=== PATIENT | female | born 1940 | race Caucasian/White ===

== ENCOUNTER 2018-10-19 22:36 | Emergency (ER) | payer MEDICARE, OTHER ==
[~2018-10-19] VITALS: Ht 152.4 cm; Wt 83.9 kg
[2018-10-19] MEDS ORDERED: DOXYCYCLINE 10100 MG PO (22:47)
[2018-10-19] MEDS ORDERED: MUCUS ER600 M1 PO (22:48)
[2018-10-19] MEDS ORDERED: SEREVENT DISKU50 MCG INH (22:48)
[2018-10-19] MEDS ORDERED: BUSPIRONE HCL10 MG PO (22:49)
[2018-10-19] MEDS ORDERED: METFORMIN HCL500 MG PO (22:50)
[2018-10-19] MEDS ORDERED: CLARINEX5 MG PO (22:50)
[2018-10-19] MEDS ORDERED: COZAAR 25 MG TA25 M1 PO (22:51)
[2018-10-19] MEDS ORDERED: PROAIR HFA8.5 GM INH (22:51)
[2018-10-19] MEDS ORDERED: CENTRUM SILVER1 EAC4 PO (22:52)
[2018-10-19] MEDS ORDERED: FISH OIL 1,001000 M2 PO (22:52)
[2018-10-19] MEDS ORDERED: VITAMIN D3400 UNIT PO (22:52)
[2018-10-19] MEDS ORDERED: NEXIUM40 MG PO (22:53)
[2018-10-19] MEDS ORDERED: LIPITOR40 MG PO (22:53)
[2018-10-19] MEDS ORDERED: CALCIUM 600 +1 EAC1 PO (22:53)
[2018-10-19] MEDS ORDERED: OCCUVITE PO (22:53)
[2018-10-19] MEDS ORDERED: SINGULAIR 10 MG10 M1 PO (22:54)
[2018-10-19] MEDS ORDERED: NORVASC5 MG PO (22:54)
[2018-10-19] MEDS ORDERED: SYNTHROID112 MC1 PO (22:54)
[2018-10-19] MEDS ORDERED: ZIAC 5-6.25 MG1 EACH PO (22:55)
[2018-10-19] MEDS ORDERED: MEDROLDOSEPACK PO (22:57)
[2018-10-19] MEDS ORDERED: DIFLUCAN150 MG PO (23:50)
[2018-10-19 23:52] VITALS: BP 162/66
== END 2018-10-19 23:53 | disposition home or self-care (01) ==
LOC: M.ERS 22:36
DX: T36.0X5A Adverse effect of penicillins, initial encounter (principal); I10 Essential (primary) hypertension; E11.9 Type 2 diabetes mellitus without complications; E03.9 Hypothyroidism, unspecified; J45.909 Unspecified asthma, uncomplicated; Z88.0 Allergy status to penicillin; Z88.2 Allergy status to sulfonamides; Z88.8 Allergy status to other drugs, medicaments and biological substances